=== PATIENT | female | born 1970 | race Caucasian/White ===

== ENCOUNTER 2019-11-27 12:06 | Emergency (ER) | payer SELFPAY ==
[2019-11-27 13:31] VITALS: BP 183/118; PULSE 86; RESP 18; TEMP 36.8; O2SAT 98; BMI 41.5
--- NOTE | 2019-11-27 13:40 | W.ED.BACK ---
HPI - Back Pain/Injury General: Chief Complaint: Fall Stated Complaint: back pain and leg numbness Time Seen by Provider: 11/27/19 13:31 History of Present Illness: MD elicited complaint: back pain (lower right sided back pain that radiates down right leg. Right leg numbness), back injury, fall and other (Left ankle and foot pain.) Pertinent past history: prior back pain (chronic back pain) Onset (ago): hour(s) (Fall occured last night) Timing: constant Severity: moderate (back pain is 10/10 and left foot and ankle is 5/10) Pain scale (0-10): 10 (back pain ) Similar Symptoms Previously: No Quality: sharp, aching and tingling (down right leg) Location: lumbar spine (right side) Radiation: right upper leg Exacerbating factors: movement and walking Relieving factors: none (Patient took Tylenol and it did not provide any relief.) Context: fall (Patient says she was walking up a steep road in a car was going so she went to step off the road and she twisted her left ankle and fell down to where her lower back hit concrete curb.) Associated symptoms: Reports difficulty walking (hurts to walk on left ankle and lower back pain worsens as well.), numbness (right leg) and weakness (right leg); Deny abdominal pain, chills, dysuria, fatigue, fecal incontinence, fever(s), hematuria, nausea or vomiting Work related injury: No Review of Systems Const: Denies: fever(s), chills or fatigue Eyes: Denies: change in vision or eye discomfort ENMT: Denies: throat pain, odynophagia, nasal discharge or nasal congestion Card: Denies: chest pain, palpitations, edema, swelling of feet/ankles, dyspnea on exertion or orthopnea Resp: Denies: dyspnea, productive cough or non-productive cough GI: Denies: abdominal pain, nausea, vomiting, diarrhea, constipation, fecal incontinence or hematochezia : Denies: flank pain, dysuria or hematuria Musc: Reports: back pain; Denies: neck pain or extremity swelling Skin/Breast: Denies: rash or new lesions Neuro: Reports: difficulty walking (hurts to walk on left ankle and lower back pain worsens as well.); Denies: headache(s), numbness in extremities or weakness in extremities PFS ED PFSH: Social History Smoking and tobacco status: former smoker Physical Exam Const: COMMON NORMALS: no acute distress and patient oriented x3 GENERAL APPEARANCE: cooperative HENMT: COMMON NORMALS: normocephalic HEAD & SCALP: normocephalic MOUTH: Normal oral and palatal mucosa present THROAT: posterior oropharynx normal and uvula midline Neck/C-Spine: COMMON NORMALS: supple GENERAL: Yes normal visual inspection Resp: COMMON NORMALS: normal respiratory effort, No retractions, No use of accessory muscles and clear to auscultation bilaterally AUSCULTATION: clear to auscultation bilaterally Cardio: COMMON NORMALS: regular rate, regular rhythm, S1 normal heart sound present, S2 normal heart sound present, No gallops present (Cardio), No clicks present (Cardio), No murmurs present (Cardio) and Peripheral pulses 2+ throughout RATE: regular rate RHYTHM: regular rhythm HEART SOUNDS: S1 normal heart sound present and S2 normal heart sound present PERIPHERAL PULSES: Peripheral pulses 2+ throughout GI: COMMON NORMALS: Normal to inspection, nondistended, normoactive bowel sounds present, Soft to palpation, non-tender and no masses PALPATION: Yes Soft to palpation : COMMON NORMALS: Yes no CVA tenderness BLADDER/KIDNEY EXAM: Yes no CVA tenderness Back/Pelvis: COMMON NORMALS: no CVA tenderness LUMBAR SPINE/LOWER BACK: Yes pain with ROM, Yes paraspinal muscle tenderness and Yes straight leg raise positive right Extremity: LEFT LOWER EXTREMITY: Yes ankle joint Left ankle: Yes inspection (Mild swelling.), Yes palpation (Tender on the lateral malleolus.), Yes ROM (Limited due to pain.) and Yes neurovascular exam (Intact) and Yes foot & digits Left foot and digits: Yes inspection (Mild swelling), Yes palpation (Tender over midfoot and near base of first and second digit.), Yes ROM (Limited with pain) and Yes neurovascular exam (Intact) Neuro: COMMON NORMALS: patient oriented x3 and moves all extremities Skin: COMMON NORMALS: no rashes or lesions noted GENERAL SKIN EXAM: no rashes or lesions noted and dry skin Course Vital Signs: Vital signs: Vital Signs Temperature 98.3 F 11/27/19 13:31 Pulse Rate 83 11/27/19 15:48 Respiratory Rate 14 11/27/19 15:48 Blood Pressure 164/93 11/27/19 15:48 Pulse Oximetry 97 11/27/19 15:48 MDM - Back Pain/Injury Imaging Data^: Xray Ortho: Attestation: I personally reviewed and interpreted this imaging study as follows: Radiologist's impression: [place] [address] XRay Report Signed Patient: Yamilka Iniguez Unit #: [id number] : 1970 Age/Sex: 49 / F ADM Date: 11/27/19 Loc: ER Room/Bed: Attending Dr: Ordering Provider/Ordering MD: Tim Moise Date of Service: 11/27/19 Procedure(s): XR foot LT 2V 55937 Accession Number(s): [id number] Report Number: [id number] WS: [id number] XR foot LT 2V 32427 REASON FOR EXAM: injury with pain FINDINGS: 3 views of the left foot Semora the phalanges are all normal. Calcaneal spur is noted. The metatarsals and tarsals show no fractures no bony coalition changes. XR/XR foot LT 2V 86610 IMPRESSION: Calcaneal spur. Dictated By: Niko Leonard DO Signed By: Niko Leonard DO Signed Date/Time: 11/27/19 1410 DD/ [address] [address] XRay Report Signed Patient: Yamilka Iniguez Unit #: [id number] : 1970 Age/Sex: 49 / F ADM Date: 11/27/19 Loc: ER Room/Bed: Attending Dr: Ordering Provider/Ordering MD: Tim Moise Date of Service: 11/27/19 Procedure(s): XR ankle LT min 3V* 05978 Accession Number(s): [id number] Report Number: [id number] WS: [id number] XR ankle LT min 3V* 89119 REASON FOR EXAM: injury with pain FINDINGS: 3 views of the left ankle show normal appearance of the ankle mortise. The tibia, fibula, talar area are normal. The posterior shelf of the tibia is normal. A calcaneal spur is noted. XR/XR ankle LT min 3V* [id number] IMPRESSION: Negative left ankle. Calcaneal spur Dictated By: Niko Leonard DO Signed By: Niko Leonard DO Signed Date/Time: 11/27/19 140 DD/ [address]: Attestation: I personally reviewed and interpreted this imaging study as follows: Radiologist's impression: [place] [address] CT Scan Report Signed Patient: Yamilka Iniguez Unit #: [id number] : 1970 Age/Sex: 49 / F ADM Date: 11/27/19 Loc: ER Room/Bed: Attending Dr: Ordering Provider/Ordering MD: Tim Moise Date of Service: 11/27/19 Procedure(s): CT lumbar spine wo con* 67109 Accession Number(s): [id number] Report Number: [id number] WS: [id number] CT lumbar spine wo con* 43300 REASON FOR EXAM: fall with injury, pain and numbness right leg IV CONTRAST ADMINISTERED: none TOTAL EXAM DLP: 2143.[address] scans at [facility] use at least one of these dose optimization techniques: automated exposure control; mA and/or kV adjustment per patient size (includes targeted exams where dose is matched to clinical indication); or iterative reconstruction. FINDINGS: Degenerated changes along the apophyseal joints of L4 scoliosis convex to the left L3-L4 shows degenerated vacuum changes no fractures are noted L4-L5-L5 on the left. Scoliotic curve convex to the left is seen. L1-L2: Normal vertebral alignment. Exiting foramina normal. No disc bulge or herniation. No spinal stenosis.No Fractures identified. L2-L3: Normal vertebral alignment. Exiting foramina is normal. No disc bulge or herniation. No spinal stenosis. L3-L4: Degenerated vacuum changes are noted. The exiting foramina as are normal. There is no disc bulge or herniation. There is no fractures seen. L4-L5: Moderate right-sided foraminal stenosis. No disc bulge or herniation. No spinal stenosis. L5-S1: Normal vertebral alignment. Exiting foramina normal. No disc bulge or herniation. No spinal stenosis.there is no evidence of fractures of the articular facets. In the sacroiliac joints appear to be normal. CT/CT lumbar spine wo con* 52735 IMPRESSION: Degenerate changes along the apophyseal joints of L5 and L4 on the left Degenerated vacuum changes L3-L4. Moderate right-sided foraminal stenosis elbow 4-L5 There is no definite fractures seen in the lumbar spine. Dictated By: Niko Leonard DO Signed By: Niko Leonard DO Signed Date/Time: 11/27/19 1503 DD/ 1456 Discharge Plan Discharge Patient Disposition: Home, Self-Care Clinical Impression: Acute lumbar radiculopathy Left ankle sprain Qualifiers: Encounter type: initial encounter Involved ligament of ankle: anterior talofibular ligament Qualified Code(s): S93.492A - Sprain of other ligament of left ankle, initial encounter Condition: Stable Prescriptions: New Robaxin-750 750 mg tablet 750 mg PO Q8H Qty: 20 RF: 0 Medrol (Artru) 4 mg tablets,dose pack See Rx Instructions .ROUTE .COMPLEX Qty: 21 RF: 0 Discharge Orders: Discharge Order (Routine); Ordered 11/27/19 Ordered By: Tim Moise Referrals: Riley Toussaint MD [Primary Care Provider] - Discharge Diet: Regular Discharge Activity: Limit activity as instructed Patient Instructions: Ankle Sprain (ED), Lumbar Radiculopathy (ED) Activity Restrictions/Additional Instructions: I contacted case management and they should be contacting you next several days about PCP appointment. I recommend that you rest and are off from work and till the . On November 30 if you can go back to work and I recommend with a limit of lifting 10 pounds until cleared by PCP. Rest, ice, elevate left foot. Apply heat and/or cold pack on lumbar spine to help with pain. Take full course of Medrol Dosepak to help with back pain. Also send you home with a prescription for Robaxin which is a muscle relaxer. Take this at night because it can cause drowsiness so use with caution during the day. Stretch back daily. 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
--- NOTE | 2019-11-27 13:54 | XR_ITS ---
WS: [id number] XR ankle LT min 3V* 16943 REASON FOR EXAM: injury with pain FINDINGS: 3 views of the left ankle show normal appearance of the ankle mortise. The tibia, fibula, t alar area are normal. The posterior shelf of the tibia is normal. A calcaneal spur is noted. XR/XR ankle LT min 3V* 35514 IMPRESSION: Negative left ankle. Calcaneal spur
--- NOTE | 2019-11-27 13:54 | XR_ITS ---
WS: [id number] XR foot LT 2V 13406 REASON FOR EXAM: injury with pain FINDINGS: 3 views of the left foot Wilson the phalanges are all normal. Calcaneal spur is noted. The metatarsals and tarsals show no fractures no bony coalition changes. XR/XR foot LT 2V 15789 IMPRESSION: Calcaneal spur.
--- NOTE | 2019-11-27 13:54 | CT_ITS ---
WS: [id number] CT lumbar spine wo con* [id number] REASON FOR EXAM: fall with injury, pain and numbness right leg IV CONTRAST ADMINISTERED: none TOTAL EXAM DLP: 2143.[address] scans at [facility] use at least one of these dose optimization techniques: automat ed exposure control; mA and/or kV adjustment per patient size (includes targeted exams where dose is matched to clinical indication); or iterative reconstruction. FINDINGS: Degenerated changes along the apophyseal joints of L4 scoliosis convex to the left L3-L4 shows degenerated vacuum changes no fractures are noted L4-L5-L5 on the left. Scoliotic curve convex to the left is seen. L1-L2: Normal vertebral alignment. Exiting foramina normal. No disc bulge or herniation. No spinal st enosis.No Fractures identified. L2-L3: Normal vertebral alignment. Exiting foramina is normal. No disc bulge or herniation. No spinal stenosis. L3-L4: Degenerated vacuum changes are noted. The exiting foramina as are normal. There is no disc bul ge or herniation. There is no fractures seen. L4-L5: Moderate right-sided foraminal stenosis. No disc bulge or herniation. No spinal stenosis. L5-S1: Normal vertebral alignment. Exiting foramina normal. No disc bulge or herniation. No spinal st enosis.there is no evidence of fractures of the articular facets. In the sacroiliac joints appear to be normal. CT/CT lumbar spine wo con* [id number] IMPRESSION: Degenerate changes along the apophyseal joints of L5 and L4 on the left Degenerated vacuum changes L3-L4. Moderate right-sided foraminal stenosis elbow 4-L5 There is no definite fractures seen in the lumbar spine.
[2019-11-27 14:29] VITALS: BP 168/104; PULSE 84; RESP 14; O2SAT 99
[2019-11-27] MEDS: HYDROcodone-acetaminophen 7.5-325 mg Tablet 1 TAB PO ×2 (14:30→15:36)
[2019-11-27] MEDS: predniSONE 20 mg Tablet 60 MG PO (14:31)
[2019-11-27] MEDS: orphenadrine 30 mg/mL Inj 2 mL 60 MG IM (14:31)
[2019-11-27 15:48] VITALS: BP 164/93; PULSE 83; RESP 14; O2SAT 97
--- NOTE | 2019-11-28 14:34 | DCPLANNER ---
manager oracle database had message to speak with patient about getting established with a primary care physician. Patient stated that she would like to be established at the [facility]. manager oracle database called the [facility] clinic, a follow up appointment was scheduled for Wednesday, December 04, 2019 at 9:20 with WATCH TRAIN ASSEMBLER, Edie Fritz. manager oracle database called patient and informed patient of the scheduled appointment. manager oracle database will mail patient both of the financial services manager applications for the hospital to fill out and turn back in.
--- NOTE | 2019-12-07 14:00 | DCPLANNER ---
Patients appointment rescheduled for 12.07.19 with [facility].
--- NOTE | 2019-12-11 13:35 | DCPLANNER ---
Patient had a follow up appointment scheduled for 12.07.[address] [facility]. Patient did not attend the appointment.
== END 2019-11-27 15:49 | disposition home or self-care (01) ==
PROVIDERS: Emergency Provider Physician Assistant; PCP Internal Medicine
DX: M54.16 Radiculopathy, lumbar region (principal); S93.492A Sprain of other ligament of left ankle, initial encounter; X50.1XXA Overexertion from prolonged static or awkward postures, initial encounter; Z87.891 Personal history of nicotine dependence
CPT/HCPCS: 12345; 72131; 73610; 73620; 96372; 99281; 99283; E0114; J2360; J7512

== ENCOUNTER 2019-12-25 10:23 | Outpatient (CLI) | payer OTHER, SELFPAY ==
--- NOTE | 2019-12-25 10:30 | XR_ITS ---
WS: [id number] Lumbar spine, 3 views, 12/25/2019 Clinical Data: LOWER BACK PAIN Comparison: None. Findings: No compression fractures or subluxation is seen. There is degenerative disc narrowing at L4-L5 and L5 -S1. There is moderate osteoarthritic spurring from L1 through L5. The transverse processes and SI husam ints are normal. There is a small levoscoliosis. There are clips in the right upper quadrant from a c holecystectomy. Impression: 1. Moderate osteoarthritis of the lumbar vertebral bodies. 2. Degenerative disc narrowing at L4-L5 and L5-S1. 3. Levoscoliosis.
== END 2019-12-25 10:24 | disposition home or self-care (01) ==
PROVIDERS: PCP Internal Medicine; Visit Provider Pathology Clinical Pathology/Laboratory Medicine
DX: M47.816 Spondylosis without myelopathy or radiculopathy, lumbar region (principal); M51.36 Other intervertebral disc degeneration, lumbar region; M41.86 Other forms of scoliosis, lumbar region
CPT/HCPCS: 72100

== ENCOUNTER → 2020-08-19 14:34 | Outpatient (BNVA) | payer OTHER, SELFPAY | PROVIDERS: PCP Internal Medicine; Visit Provider Family Medicine | DX: Z20.822 Contact with and (suspected) exposure to COVID-19 (principal) | CPT/HCPCS: 87635 ==

== ENCOUNTER → 2020-08-22 09:52 | Outpatient (BNVA) | payer MEDICAID, SELFPAY | PROVIDERS: PCP Internal Medicine; Visit Provider Family Medicine | DX: M25.561 Pain in right knee (principal) | CPT/HCPCS: 73562 ==

== ENCOUNTER 2020-10-07 14:55 | Emergency (ER) | payer MEDICAID, SELFPAY ==
[2020-10-07 15:27] VITALS: BP 145/91; PULSE 97; RESP 16; TEMP 36.5; O2SAT 95; BMI 47.7
--- NOTE | 2020-10-07 15:36 | ED_ITS ---
HPI - Fall General: Chief Complaint: Fall Stated Complaint: FELL/HIT HEAD, INJURED WRISTS/ELBOWS Time Seen by Provider: 10/07/20 15:33 History of Present Illness: HPI Narrative: 50-year-old female presents to the emergency room with a complaint of a fall. She has a history of some cervical disc disease as well as lumbar disc disease she states she has fibromyalgia and she uses a walker. The wheel of the walker collapsed walker suddenly stopped and she fell forward over the walker because of her own momentum. She is complaining of neck pain as well as bilateral knee pain and left hand pain there is no loss of consciousness. MD complaint: fall Onset (ago): minute(s) Fall from: standing Fall witnessed: yes, by family Place fall occurred: home Loss of consciousness: None Prolonged down time: no Symptoms prior to fall: none Context: tripped/slipped (Mechanical failure of the walker which contributed to the fall) Location of injury: head and face Location of injury - extremities: Left: hand and Bilateral: knee Severity: mild Quality: aching Associated symptoms-after fall: Reports difficulty walking (Chronic at baseline); Denies abdominal pain, chest pain, confusion, headache(s), hematuria, lightheadedness, neck pain, numbness, short of breath, vertigo or weakness Review of Systems Const: Denies: fever(s), chills, body aches, change in appetite, fatigue or malaise ENMT: Denies: throat pain, ear or mastoid pain, nasal discharge or nasal congestion Card: Denies: chest pain or lightheadedness Resp: Denies: dyspnea, productive cough or non-productive cough GI: Denies: abdominal pain : Denies: hematuria Musc: Denies: neck pain Skin/Breast: Denies: rash or pruritus Neuro: Reports: difficulty walking (Chronic at baseline); Denies: headache(s), vertigo or confusion PFS ED PFSH: Medical History DDD (degenerative disc disease) Diverticulitis Fibromyalgia PTSD (post-traumatic stress disorder) Surgical History History of History of cholecystectomy History of hysterectomy History of shoulder surgery Hx of breast reduction, elective Social History Smoking and tobacco status: former smoker Alcohol intake: never Current occupational status: unemployed Physical Exam Const: COMMON NORMALS: no acute distress GENERAL APPEARANCE: cooperative and comfortable ORIENTATION/CONSCIOUSNESS: Yes awake, Yes oriented to person, Yes oriented to place and Yes oriented to time HENMT: COMMON NORMALS: normocephalic, atraumatic, hearing grossly normal bilaterally, external ears normal, EAC's normal, TM's normal bilaterally, Normal nasal mucous membranes and turbinates present, moist oral mucous membranes and oropharynx normal HEAD & SCALP: normocephalic and atraumatic NOSE: Normal nasal mucous membranes and turbinates present EXTERNAL EAR: Yes external ears normal EXTERNAL AUDITORY CANAL: EAC's normal TYMPANIC MEMBRANE: TM's normal bilaterally Eye: COMMON NORMALS: Equal, round and reactive pupils present, EOMs intact bilaterally, conjunctivae normal and no scleral icterus CONJUNCTIVA: Yes conjunctivae normal PUPIL: Yes Equal, round and reactive pupils present Neck/C-Spine: COMMON NORMALS: full ROM, no lymphadenopathy, supple and no JVD Lymph: LYMPHATIC: no lymphadenopathy noted and no lymphedema noted Resp: COMMON NORMALS: normal respiratory effort, No retractions, No use of accessory muscles and clear to auscultation bilaterally AUSCULTATION: clear to auscultation bilaterally Cardio: COMMON NORMALS: no JVD, regular rate, regular rhythm and No murmurs present (Cardio) RATE: regular rate RHYTHM: regular rhythm GI: COMMON NORMALS: Soft to palpation and No hepatosplenomegaly present AUSCULTATION: Yes normoactive bowel sounds PALPATION: Yes Soft to palpation, No Tenderness to palpation present (GI), No Guarding due to palpation present (GI) and Yes No hepatosplenomegaly present Extremity: COMMON NORMALS: normal to inspection, capillary refill normal, no clubbing, cyanosis or edema, no calf tenderness and no pedal edema NARRATIVE EXTREMITY EXAM: Small abrasions bilaterally at the patella. Small amount of swelling on the dorsum of the left hand no acute fractures no obvious deformity Neuro: SENSORIUM/ORIENTATION: Yes oriented to person, Yes oriented to place and Yes oriented to time Skin: COMMON NORMALS: no rashes or lesions noted GENERAL SKIN EXAM: no rashes or lesions noted Course Vital Signs: Vital signs: Vital Signs Temperature 97.7 F 10/07/20 15:27 Pulse Rate 94 10/07/20 16:52 Respiratory Rate 16 10/07/20 16:52 Blood Pressure 151/95 10/07/20 16:52 Pulse Oximetry 95 10/07/20 16:52 MDM - Fall MDM Narrative: Medical decision making narrative: Reviewed findings with the patient. Discharge home on her regular medications. Reviewed the imaging with the patient. Discharge Plan Discharge Patient Disposition: Home Clinical Impression: Fall Condition: Stable Prescriptions: No Action gabapentin 600 mg tablet 600 mg PO TID Qty: 90 RF: 2 baclofen 10 mg tablet 10 mg PO TID Qty: 90 RF: 2 diclofenac sodium 75 mg tablet,delayed release (DR/EC) See Rx Instructions .ROUTE .COMPLEX Qty: 60 RF: 2 escitalopram oxalate 10 mg tablet See Rx Instructions .ROUTE .COMPLEX Qty: 30 RF: 2 Restoril 30 mg capsule 30 mg PO BEDTIME RF: 0 Discharge Orders: Discharge ED (Routine); Ordered 10/07/20 Ordered By: Brandt Us Referrals: Yuliet Gan MD [Primary Care Provider] - Discharge Diet: Usual diet Discharge Activity: Increase activity as tolerated Patient Instructions: Opioid Safety Coding Level of Care Code ED Vp [employer] for [employer]
[2020-10-07 15:44] VITALS: BP 165/99; PULSE 92; RESP 18; O2SAT 97
--- NOTE | 2020-10-07 15:46 | XRR_ITS ---
PROCEDURE INFORMATION: Exam: XR Left Knee Exam date and time: 10/07/2020 3:53 PM Age: 50 years old Clinical indication: Pain and injury or trauma; Blunt trauma; Knee; Left; Injury date: 10/07/20; Injury details: Fall when wheel broke off walker; Additional info: Trauma pain TECHNIQUE: Imaging protocol: XR Left knee. Views: 3 views. Total images: 3 COMPARISON: No relevant prior studies available. FINDINGS: Bones/joints: Small joint effusion. No visible fracture, subluxation, or dislocation. Moderate primary osteoarthritis with moderate medial joint space height loss, hypertrophic spurring, and mild subchondral sclerosis. Soft tissues: Unremarkable. Other findings: Obesity. XR/XR knee LT 3V* [id number] IMPRESSION: 1. Small joint effusion. 2. No visible fracture. 3. Moderate primary osteoarthritis.
--- NOTE | 2020-10-07 15:46 | CTR_ITS ---
PROCEDURE INFORMATION: Exam: CT Cervical Spine Without Contrast Exam date and time: 10/07/2020 3:53 PM Age: 50 years old Clinical indication: Pain and injury or trauma; Fall; Blunt trauma; Neck pain; Injury date: 10/07/20; Injury details: Fell when walker wheel broke, hit forehead; Additional info: Neck pain, fall TECHNIQUE: Imaging protocol: Computed tomography images of the cervical spine without contrast. Total images: 338 Radiation optimization: All CT scans at this facility use at least one of these dose optimization techniques: automated exposure control; mA and/or kV adjustment per patient size (includes targeted exams where dose is matched to clinical indication); or iterative reconstruction. COMPARISON: No relevant prior studies available. RADIATION DOSE METRICS: Total DLP (mGy-cm): 931.5 FINDINGS: Bones/joints: No acute fracture. Mild reversal normal cervical lordosis potentially positional in nature. Mild facet arthrosis. Mild degenerative disease with spondylosis deformans C5, C6, and C7. Discs/Spinal canal/Neural foramina: Moderate degenerative disc disease with moderate disc space height loss C5/C6 and C6/C7 without HNP or significant posterior annular disc bulge that results in significant central canal stenosis or neural foraminal stenosis. No significant neural foraminal narrowing. Lungs: Lung apices are normal. Soft tissues: Unremarkable. CT/CT cervical spin wo con* [id number] IMPRESSION: No acute findings. Radiation Dose CTDIVOL = (mGy): DLP = 931.5 (mGy-cm)
--- NOTE | 2020-10-07 15:46 | XRR_ITS ---
PROCEDURE INFORMATION: Exam: XR Left Wrist Exam date and time: 10/07/2020 3:53 PM Age: 50 years old Clinical indication: Pain and injury or trauma; Blunt trauma (contusions or hematomas); Wrist; Left; Injury date: 10/07/20; Injury details: Fall when wheel broke on walker; Additional info: Trauma pain TECHNIQUE: Imaging protocol: XR Left wrist. Views: 3 or more views. Total images: 3 COMPARISON: No relevant prior studies available. FINDINGS: Bones/joints: No visible acute osseous abnormality, fracture, subluxation, or dislocation. No radiographically visible joint effusion. Soft tissues: Soft tissues without evidence of edema, swelling, contusion, emphysema, or radiopaque foreign body. XR/XR wrist LT min 3V* [id number] IMPRESSION: Nonacute.
--- NOTE | 2020-10-07 15:46 | XRR_ITS ---
PROCEDURE INFORMATION: Exam: XR Right Knee Exam date and time: 10/07/2020 3:53 PM Age: 50 years old Clinical indication: Pain and injury or trauma; Blunt trauma; Knee; Bilateral; Injury date: 09/27/20; Injury details: Fall when wheel broke on walker; Additional info: Trauma pain TECHNIQUE: Imaging protocol: XR Right knee. Views: 3 views. Total images: 3 COMPARISON: CR XR knee RT 3V* [id number] 08/22/2020 9:56 AM FINDINGS: Bones/joints: No visible acute osseous abnormality, fracture, subluxation, or dislocation. No radiographically visible joint effusion. Mild primary osteoarthritis with mild medial joint space height loss. Mild hypertrophic spurring. Soft tissues: Obesity. XR/XR knee RT 3V* [id number] IMPRESSION: 1. No radiographically visible fracture. 2. Mild primary osteoarthritis.
--- NOTE | 2020-10-07 15:48 | CTR_ITS ---
PROCEDURE INFORMATION: Exam: CT Head Without Contrast Exam date and time: 10/07/2020 3:53 PM Age: 50 years old Clinical indication: Injury or trauma; Fall; Blunt trauma (contusions or hematomas); Consciousness not specified; Injury date: 10/07/20; Injury details: Fell when walker wheel broke today, hit forehead; Additional info: Closed head injury TECHNIQUE: Imaging protocol: Computed tomography of the head without contrast. Total images: 208 Radiation optimization: All CT scans at this facility use at least one of these dose optimization techniques: automated exposure control; mA and/or kV adjustment per patient size (includes targeted exams where dose is matched to clinical indication); or iterative reconstruction. COMPARISON: No relevant prior studies available. RADIATION DOSE METRICS: Total DLP (mGy-cm): 924.02 FINDINGS: Brain: No evidence of active or acute intracranial pathologic process, hemorrhage, or trauma. 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 Old lacunar infarct right internal capsule. No mass effect. No midline shift. No generalized edema. Cerebral ventricles: No ventriculomegaly. Bones/joints: Unremarkable. No acute fracture. Paranasal sinuses: Visualized sinuses are unremarkable. No fluid levels. Mastoid air cells: Visualized mastoid air cells are well aerated. Soft tissues: Unremarkable. CT/CT head wo con* [id number] IMPRESSION: No evidence of active or acute intracranial pathologic process, hemorrhage, or trauma. Radiation Dose CTDIVOL = (mGy): DLP = 924.02 (mGy-cm)
--- NOTE | 2020-10-07 16:12 | PC.NURSE ---
XRs performed at bedside, pt then taken to CT.
[2020-10-07 16:13] VITALS: BP 159/96; PULSE 99; RESP 18; O2SAT 95
[2020-10-07 16:52] VITALS: BP 151/95; PULSE 94; RESP 16; O2SAT 95
== END 2020-10-07 16:47 | disposition home or self-care (01) ==
PROVIDERS: Emergency Provider Family Medicine; PCP Family Medicine
DX: M79.642 Pain in left hand (principal); M25.561 Pain in right knee; M25.562 Pain in left knee; Z87.891 Personal history of nicotine dependence; W19.XXXA Unspecified fall, initial encounter
CPT/HCPCS: 70450; 72125; 73110; 73562; 99283

== ENCOUNTER → 2020-12-30 15:10 | Outpatient (BNVA) | payer MEDICAID, SELFPAY | PROVIDERS: PCP Family Medicine; Visit Provider Family Medicine | DX: G47.00 Insomnia, unspecified (principal); M79.7 Fibromyalgia; F43.10 Post-traumatic stress disorder, unspecified; R63.5 Abnormal weight gain | CPT/HCPCS: 80053; 80061; 85025 ==

== ENCOUNTER → 2022-11-30 10:01 | Outpatient (BNVA) | payer MEDICAID, SELFPAY | PROVIDERS: PCP Family Medicine; Visit Provider Family Medicine | DX: E66.9 Obesity, unspecified (principal); G89.29 Other chronic pain | CPT/HCPCS: 80053; 80061; 85025 ==